=== PATIENT | female | born 1960 | race Two or more races ===

== ENCOUNTER 2017-01-19 20:03 | Emergency (ER) | payer OTHER ==
--- NOTE | 2017-01-19 20:16 | PDOC ---
History of Present Illness - General History Source: Patient Exam Limitations: No Limitations - History of Present Illness Initial Comments: 01/19/17 20:22 The patient is a 56 year old female, with a significant past medical history of , who presents to the emergency department with left foot swelling and pain s/p slip and fall, today. The patient reports slipping and falling off a step just prior to ER arrival. She denies any LOC or head trauma. She denies twisting her ankle or any ankle pain at his time. She denies recent fevers, chills, headache or dizziness. She denies recent nausea, vomit, diarrhea or constipation. PAST MEDICAL HISTORY: See HPI PAST SURGICAL HISTORY: No significant history. FAMILY HISTORY: No pertinent history. SOCIAL HISTORY: Patient lives with family and is employed. MEDICATIONS: Reviewed. ALLERGIES: As per nursing notes. ROS General: No fevers or chills, no weakness, no weight loss HEENT: No change in vision. No sore throat. No ear pain CardioVascular: No chest pain or shortness of breath Respiratory:No cough, or wheezing. Gastrointestinal: No nausea, vomiting, diarrhea or constipation. No rectal bleeding Genitourinary: No dysuria, hematuria, or frequency Musculoskeletal: +LLE pain. No joint or muscle pain or swelling Neurologic: No headache, vertigo, dizziness or loss of consciousness Psychiatric: No depression Skin: No rashes or easy bruising Endocrine: no increased thirst or abnormal weight change Allergic: no skin or latex allergy All other systems reviewed and normal Exam: GENERAL: The patient is awake, alert, and fully oriented, in no acute distress. HEAD: Normal with no signs of trauma. EYES: Pupils equal, round and reactive to light, extraocular movements intact, sclera anicteric, conjunctiva clear. EXTREMITIES: There is swelling and ecchymosis to the dorsum of the foot. There is no tenderness on palpation to the ankle or base of the 5th metatarsal. There is tenderness on palpation of the dorsum of the foot. Neurovascular is intact. NEUROLOGICAL: Normal speech, normal gait. PSYCH: Normal mood, normal affect. SKIN: Warm, Dry, normal turgor, no rashes or lesions noted. <Sina Mistry - Last Filed: 01/19/17 20:22> - General History Source: Patient Exam Limitations: No Limitations - History of Present Illness Initial Comments: 01/19/17 20:25 A portion of this note was documented by scribe services under my direction. I have reviewed the details of the note, within reason, and agree with the documentation. The case summary and management plan written by me. 01/19/17 21:07 X-ray left foot shows comminuted fracture of the base of the second metatarsal. Procedure note: OCL posterior foot splint applied to left foot by Mark neurovascular intact post splint application Assessment and plan: This is a 56-year-old female who comes in complaining of pain in her left foot. Patient has a fracture of the second metatarsal. Patient put in an OCL foot splint and made with nonweightbearing. Patient given referral to an orthopedist and discharged home. <Kacy Aceves I - Last Filed: 01/19/17 21:17> - General Chief Complaint: Injury Stated Complaint: LEFT FOOT SWELLING AND PAIN Time Seen by Provider: 01/19/17 20:10 Past History <Sina Mistry - Last Filed: 01/19/17 20:22> - Past Medical History Anemia: No Asthma: No Cancer: No Cardiac Disorders: No CVA: No COPD: No CHF: No Dementia: No Diabetes: No GI Disorders: No Disorders: No HTN: No Hypercholesterolemia: Yes Liver Disease: No Seizures: No Thyroid Disease: No - Surgical History Abdominal Surgery: No Appendectomy: No Cardiac Surgery: No Cholecystectomy: No Lung Surgery: No Neurologic Surgery: No Orthopedic Surgery: No - Psycho/Social/Smoking Cessation Hx Anxiety: No Suicidal Ideation: No Smoking History: Never smoked Have you smoked in the past 12 months: No Information on smoking cessation initiated: No Hx Alcohol Use: No Drug/Substance Use Hx: No Substance Use Type: None Hx Substance Use Treatment: No <Kacy Aceves I - Last Filed: 01/19/17 21:17> - Past Medical History Allergies/Adverse Reactions: Allergies Allergy/AdvReac Type Severity Reaction Status Date / Time No Known Allergies Allergy Verified 01/19/17 20:04 Home Medications: Ambulatory Orders NK [No Known Home Medication] 03/07/14 *Physical Exam - Vital Signs Last Vital Signs Temp Pulse Resp BP Pulse Ox 99 F 80 16 124/76 99 01/19/17 20:04 01/19/17 20:04 01/19/17 20:04 01/19/17 20:04 01/19/17 20:04 <Sina Mistry - Last Filed: 01/19/17 20:22> - Vital Signs Last Vital Signs Temp Pulse Resp BP Pulse Ox 99 F 80 16 124/76 99 01/19/17 20:04 01/19/17 20:04 01/19/17 20:04 01/19/17 20:04 01/19/17 20:04 <Kacy Aceves I - Last Filed: 01/19/17 21:17> *DC/Admit/Observation/Transfer - Attestations Scribe Attestion: 01/19/17 20:22 Documentation prepared by Sina Mistry, acting as medical underwriter for Kacy Aceves MD. <Sina Mistry - Last Filed: 01/19/17 20:22> - Discharge Dispostion Admit: No <Kacy Aceves I - Last Filed: 01/19/17 21:17> Diagnosis at time of Disposition: Foot fracture, left Qualifiers: Encounter type: initial encounter Fracture type: closed Qualified Code(s): S92.902A - Unspecified fracture of left foot, initial encounter for closed fracture - Discharge Dispostion Disposition: HOME Condition at time of disposition: Stable - Patient Instructions Printed Discharge Instructions: Foot Fracture Additional Instructions: Wear the splint until you see the orthopedist. No weightbearing use crutches for ambulation. Aleve or Tylenol as needed for pain Follow-up with an orthopedist if you need an orthopedist call Dr. Saul at [phone] in the morning for an appointment his office is in the basement of this hospital. Return to the emergency department immediately with ANY new, persistent or worsening symptoms. Continue any medications as previously prescribed by your physician. You should follow up with your primary doctor as soon as possible regarding today's emergency department visit. . Please make sure your doctor reviews the results of your emergency evaluation. Thank you for coming to the Emergency Department today for your care. It was a pleasure to see you today. Please note that your evaluation is INCOMPLETE until you follow-up with your doctor.
[2017-01-19 20:29] VITALS: BP 124/76; PULSE 80; TEMP 99; BMI 32.2
== END 2017-01-19 21:20 | disposition home or self-care (01) ==
LOC: FER 20:03
PROC: 2W3TX1Z Immobilization of Left Foot using Splint (ICD-10-PCS; principal; 2017-01-19)
DX: S92.902A Unspecified fracture of left foot, initial encounter for closed fracture (principal); W10.9XXA Fall (on) (from) unspecified stairs and steps, initial encounter; Y93.89 Activity, other specified; Y92.9 Unspecified place or not applicable; E78.00 Pure hypercholesterolemia, unspecified
CPT/HCPCS: 73630-TC-LT; 99283-25